=== PATIENT | female | born 1960 | race Caucasian/White ===

== ENCOUNTER → 2022-05-28 11:02 | Outpatient (BNVA) | payer SELFPAY | PROVIDERS: PCP Family Medicine; Visit Provider Family Medicine | DX: Z51.81 Encounter for therapeutic drug level monitoring (principal); R73.03 Prediabetes | CPT/HCPCS: 80053; 83036; 85025 ==

== ENCOUNTER 2023-06-26 12:42 | Outpatient (CLI) | payer MEDICARE, SELFPAY ==
--- NOTE | 2023-06-26 13:00 | MM_ITS ---
WS: [id number] RIGHT 3D TOMOSYNTHESIS DIGITAL MAMMOGRAPHY WITH CAD CLINICAL INFORMATION: Left Breast Cancer HISTORY: LEFT mastectomy COMPARISON: None available TECHNIQUE: 3 views of the right breast were obtained. FINDINGS: Scattered fibroglandular densities of the right breast. Biopsy clip RIGHT breast. No suspicious focal mass, asymmetry, calcifications, or architectural distortion. No evidence of elvira gnancy. IMPRESSION: MM/[place] [id number] BI-RADS: 2-Benign FOLLOW UP: 1 Year Follow-up Recommend return to annual diagnostic mammography.
--- NOTE | 2023-06-26 13:06 | US_ITS ---
WS: [id number] ULTRASOUND BREAST LEFT TECHNIQUE: Ultrasound left breast focused area of concern. CLINICAL INFORMATION: Left Breast Cancer COMPARISON: None. FINDINGS: Ultrasound LEFT breast at the area of patient concern near the mastectomy scar. Ultrasound performed from the 12:00 to 6 o'clock position. Normal underlying parenchymal tissue. No suspicious abnormaliti es. No suspicious cystic or solid lesions. IMPRESSION: BI-RADS 2 benign Recommend return to annual diagnostic mammography
== END 2023-06-26 12:43 | disposition home or self-care (01) ==
LOC: RAD 12:43
PROVIDERS: PCP Family Medicine; Visit Provider Family Medicine
DX: Z85.3 Personal history of malignant neoplasm of breast (principal); Z90.12 Acquired absence of left breast and nipple
CPT/HCPCS: 76642; 77061; G0279

== ENCOUNTER → 2023-07-15 08:38 | Outpatient (BNVA) | payer MEDICARE, SELFPAY | PROVIDERS: PCP Family Medicine; Visit Provider Family Medicine | DX: Z51.81 Encounter for therapeutic drug level monitoring (principal); R73.03 Prediabetes; E03.9 Hypothyroidism, unspecified; K85.90 Acute pancreatitis without necrosis or infection, unspecified; Z13.220 Encounter for screening for lipoid disorders | CPT/HCPCS: 80053; 80061; 83036; 84439; 84443; 85025 ==

== ENCOUNTER 2023-09-07 14:28 | Emergency (ER) | payer MEDICARE, SELFPAY ==
[2023-09-07] VITALS (9 sets, daily range): BP systolic 135–156; BP diastolic 74–101; PULSE 71–89; RESP 16–17; TEMP 36.5; O2SAT 93–99; BMI 46.3
--- NOTE | 2023-09-07 14:46 | ECG_ITS ---
[facility] Test Date: 2023-09-07 Pat Name: Leonarda East Department: Room: Gender: Female Clerical Aide: : 1960 Requested By: Masood Alvarez Order Number: [id number] Radha MD: Domingo Moralez M.D. Measurements Intervals [place] Rate: 75 P: 33 [place]: 182 QRS: -14 QRSD: 88 T: 26 QT: 398 QTc: 446 Interpretive Statements SINUS RHYTHM LOW QRS VOLTAGE IN PRECORDIAL LEADS [QRS DEFLECTION < 1.0 mV IN CHEST LEADS] MODERATE VOLTAGE CRITERIA FOR LVH, CONSIDER NORMAL VARIANT [MEETS CRITERIA IN ONE OF: R(aVL), S(V1), R(V5), R(V5/V6)+S(V1)] ANTEROSEPTAL MYOCARDIAL INFARCTION , OF INDETERMINATE AGE [40+ ms Q WAVE IN V1-V4] INTERPRETATION BASED ON A DEFAULT AGE OF 40 YEARS No previous ECG available for comparison Electronically Signed On 09-08-2023 14:17:26 SUPERVISOR/PORT DIRECTOR by Domingo Moralez M.D. [id number]
[2023-09-07 15:41] LABS: Basophils # 0.1 10^3/uL (0.0-0.1); Basophils % 0.7 %; Eosinophils # 0.5 10^3/uL (0.0-0.8); Eosinophils % 4.7 %; Hematocrit 41.6 % (36-47); Lymphocytes # 1.5 10^3/uL (0.8-4.8); Lymphocytes % 15.7 %; Mean Corpuscular HGB Conc 33.7 g/dL (30-55); Mean Corpuscular Hemoglobin 32.3 pg (27-33); Mean Corpuscular Volume 96.1 fl (85-98); Mean Platelet Volume 10.6 fL (7.4-10.4); Monocytes # 0.9 10^3/uL (0.2-0.9); Monocytes % 9.1 %; Neutrophils # 6.72 10^3/uL (1.8-7.7); Neutrophils % 69.3 %; Nucleated Red Blood Cells % 0 %; Platelet Count 257 10^3/cmm (157-399); Red Blood Count 4.33 10^6/uL (3.85-5.65); Red Cell Distribution Width 12.7 % (12.1-15.1)
--- NOTE | 2023-09-07 15:45 | XRR_ITS ---
PROCEDURE INFORMATION: Exam: XR Chest Exam date and time: 09/07/2023 3:19 PM Age: 63 years old Clinical indication: Chest pressure; Patient HX: Chest pain TECHNIQUE: Imaging protocol: Radiologic exam of the chest. Views: 1 view. COMPARISON: CR (CHEST, ) 09/07/2023 3:19 PM FINDINGS: Lungs: Unremarkable. No consolidation. Pleural spaces: Unremarkable. No pleural effusion. No pneumothorax. Heart/Mediastinum: Unremarkable. No cardiomegaly. Bones/joints: Mild degenerative changes of the shoulder joints. XR/XR chest 1V portable [id number] IMPRESSION: No acute findings.
[2023-09-07 16:00] LABS: Alanine Aminotransferase 22 U/L (0-33); Albumin Level 4.3 g/dL (3.5-5.2); Alkaline Phosphatase 68 U/L (35-105); Aspartate Amino Transferase 23 U/L (0-32); Blood Urea Nitrogen 16 mg/dL (8-23); Calcium 9.7 mg/dL (8.5-10.5); Carbon Dioxide 29 mmol/L (22-29); Chloride 102 mmol/L (98-107); Globulin 2.8 g/dL (1.3-4.6); Glomerular Filtration Rate 45.1 mL/min (90-130); Glucose 135 mg/dL (65-115); Osmolality Calculated 299 mOsm/kg (285-295); Sodium 143 mmol/L (136-145); Total Bilirubin 0.3 mg/dL (0.15-1.2); Total Protein 7.1 g/dL (6.6-8.7)
--- NOTE | 2023-09-07 17:23 | W.ED.ABDPA2 ---
HPI - Abdominal Pain General: Chief Complaint: Abdominal Pain Stated Complaint: chest pain Time Seen by Provider: 09/07/23 15:11 History of Present Illness: This patient is a 63-year-old white female who presents to the ER complaining of epigastric abdominal pain that radiates through to the back. She had some mild pain yesterday which resolved spontaneously. Today it was more severe around 1 PM. She states it feels like prior episodes of pancreatitis. Patient has had a cholecystectomy in the past. She has not had any associated nausea or vomiting. No constipation or diarrhea. No fever. She states her pain has resolved now. Review of Systems General: Reports: 10 or more systems reviewed and unremarkable except in HPI and below GI: Reports: abdominal pain PFSH ED PFSH: Medical History Pancreatitis, recurrent Hx of breast cancer Treated in 2002 Surgical History History of ventral hernia repair x 2 History of mastectomy left due to cancer Family History Brother Melanoma from this and metastases to lungs Sister Cancer Stage 4 colon cancer and lung cancer Brother Cancer of colon cancer Social History Substance/Drug Use: never Additional social history: Moved from [place], [place] Physical Exam Const: COMMON NORMALS: no acute distress, patient oriented x3 and no limitations GENERAL APPEARANCE: cooperative and comfortable HENMT: COMMON NORMALS: normocephalic, atraumatic, Normal nasal mucous membranes and turbinates present, moist oral mucous membranes and oropharynx normal HEAD & SCALP: normal to inspection, normocephalic and atraumatic FACE & SINUS: normal facial exam NOSE: Normal nasal mucous membranes and turbinates present Eye: COMMON NORMALS: Equal, round and reactive pupils present, EOMs intact bilaterally and conjunctivae normal GENERAL EYE: appearance normal, both eyes and all related structures CONJUNCTIVA: Yes conjunctivae normal PUPIL: Yes Equal, round and reactive pupils present Neck/C-Spine: COMMON NORMALS: supple and no JVD Chest: COMMONS NORMALS: normal inspection of the chest Resp: COMMON NORMALS: normal respiratory effort and clear to auscultation bilaterally AUSCULTATION: clear to auscultation bilaterally Cardio: COMMON NORMALS: no JVD, regular rate, regular rhythm, No gallops present (Cardio), No murmurs present (Cardio) and No rub (Cardio) RATE: regular rate RHYTHM: regular rhythm GI: COMMON NORMALS: Normal to inspection, nondistended, normoactive bowel sounds present, Soft to palpation and non-tender AUSCULTATION: Yes normoactive bowel sounds PALPATION: Yes Soft to palpation : COMMON NORMALS: Yes no CVA tenderness BLADDER/KIDNEY EXAM: Yes no CVA tenderness Back/Pelvis: COMMON NORMALS: no CVA tenderness and thoracic and lumbar spine normal to inspection Extremity: COMMON NORMALS: normal to inspection Neuro: COMMON NORMALS: patient oriented x3 and CN's II-XII intact bilaterally Psych: COMMON NORMALS: mental status grossly normal, Normal thought process present and cooperative THOUGHT PROCESS: Normal thought process present Skin: COMMON NORMALS: no rashes or lesions noted, turgor normal and no jaundice GENERAL SKIN EXAM: no rashes or lesions noted and turgor normal Course Vital Signs: Vital signs: Vital Signs Temperature 97.7 F 09/07/23 15:00 Pulse Rate 81 09/07/23 16:45 Respiratory Rate 17 09/07/23 16:45 Blood Pressure 135/87 09/07/23 16:45 Pulse Oximetry 96 09/07/23 16:45 Oxygen Delivery Me thod Room Air 09/07/23 16:45 MDM - Abdominal Pain Medical Decision Making EKG was normal. CBC and CMP normal. Lipase 3762. Patient remained pain-free throughout her ER stay. She was discharged in stable condition instructed to push clear liquids only for the next 24 to 48 hours. Recommended she follow-up with her primary care physician within 1 to 3 days for recheck of her lipase. I did prescribe [place] and Zofran if she does redevelop pain at home. Lab Data 09/07/23 15:28 09/07/23 15:28 Labs/Radiology: Radiology Impressions Chest X-Ray 09/07/23 15:45 IMPRESSION: No acute findings. Laboratory Results WBC 9.70 10^3/uL (3.29-11.43) 09/07/23 15:28 RBC 4.33 10^6/uL (3.85-5.65) 09/07/23 15:28 Hgb 14.00 g/dL (11.27-16.99) 09/07/23: Hct 41.6 % (36-47) 09/07/23: MCV 96.1 fl (85-98) 09/07/23 15: MCH 32.3 pg (27-33) 09/07/23: MCHC 33.7 g/dL (30-55) 09/07/23: RDW 12.7 % (12.1-15.1) 09/07/23: Plt Count 257 10^3/cmm (157-399) 09/07/23 MPV 10.6 fL (7.4-10.4) H 09/07/23 Neut % (Auto) 69.3 % 09/07/23: Lymph % (Auto) 15.7 % 09/07/23: [place] % (Auto) 9.1 % 09/07/23: Eos % (Auto) 4.7 % 09/07/23 Baso % (Auto) 0.7 % 09/07/23 Neut # (Auto) 6.72 10^3/uL (1.8-7.7) 09/07/23 Lymph # (Auto) 1.5 10^3/uL (0.8-4.8) 09/07/23 [place]assen # (Auto) 0.9 10^3/uL (0.2-0.9) 09/07/23 Eos # (Auto) 0.5 10^3/uL (0.0-0.8) 09/07/23 Baso # (Auto) 0.1 10^3/uL (0.0-0.1) 09/07/23 Nucleated RBC % (auto) 0 % 09/07/23 Nucleated RBCs # 0.0 /100WBC 09/07/23: Sodium 143 mmol/L (136-145) 09/07/23: Potassium 4.0 mmol/L (3.5-5.1) 09/07/23: Chloride 102 mmol/L (98-107) 02/11/24 15:28 Carbon Dioxide 29 mmol/L (22-29) 09/07/23 15:28 Anion Gap 16.0 (5-19) 09/07/23 15:28 BUN 16 mg/dL (8-23) 09/07/23 15:28 Creatinine 1.2 mg/dL (0.5-0.9) H 09/07/23 15:28 GFR Calculation 45.1 mL/min (90-130) L 09/07/23 15:28 Glucose 135 mg/dL (65-115) H 09/07/23 15:28 Calculated Osmolality 299 mOsm/kg (285-295) H 09/07/23 15:28 Calcium 9.7 mg/dL (8.5-10.5) 09/07/23 15:28 Total Bilirubin 0.3 mg/dL (0.15-1.2) 09/07/23 15:28 AST 23 U/L (0-32) 09/07/23 15:28 ALT 22 U/L (0-33) 09/07/23 15:28 Alkaline Phosphatase 68 U/L (35-105) 09/07/23 15:28 Total Protein 7.1 g/dL (6.6-8.7) 09/07/23 15:28 Albumin 4.3 g/dL (3.5-5.2) 09/07/23 15:28 Globulin 2.8 g/dL (1.3-4.6) 09/07/23 15:28 Lipase > 3762 U/L (13-60) H 09/07/23 15:28 All radiology interpretation(s) finalized by discharge Discharge Plan Discharge Patient Disposition: Home Clinical Impression: Pancreatitis Qualifiers: Chronicity: acute Pancreatitis type: idiopathic Acute pancreatitis complication: no infection or necrosis Qualified Code(s): K85.00 - Idiopathic acute pancreatitis without necrosis or infection Condition: Stable Prescriptions: New ondansetron 4 mg tablet,disintegrating 4 mg PO Q6H PRN (Reason: nausea and vomiting) Qty: 20 0RF hydrocodone-acetaminophen 5-325 mg tablet 1 tab PO Q4H PRN (Reason: pain) Qty: 20 0RF No Action cholecalciferol (vitamin D3) 25 mcg (1,000 unit) capsule 25 mcg PO DAILY ascorbic acid (vitamin C) 1,000 mg tablet 1 g PO DAILY omega-3 fatty acids 1,000 mg capsule 1,000 mg PO BID calcium 600 mg capsule PO magnesium oxide 500 mg tablet 500 mg PO DAILY tumeric 800 PO DAILY levothyroxine 75 mcg tablet 75 mcg PO DAILY Qty: 30 6RF (DME) CPAP mask and supplies See Rx Instructions .Route .MEDSUPPLY Qty: 1 3RF Rx Instructions: As directed to be used with CPAP at night metoprolol succinate 25 mg tablet extended release 24 hr 25 mg PO DAILY Qty: 90 3RF Discharge Orders: Discharge ED (Routine); Ordered 09/07/23 Ordered By: Nicho Coronado Referrals: Cole Richardson MD [Primary Care Provider] - 1-3 days Patient Instructions: Opioid Safety, Pain Management Coding Level of Care Code ED Laboratory Technical Specialist for Moses Crowder
== END 2023-09-07 17:29 | disposition home or self-care (01) ==
PROVIDERS: Internal Medicine; Emergency Provider Emergency Medicine; PCP Family Medicine
DX: K85.00 Idiopathic acute pancreatitis without necrosis or infection (principal); Z85.3 Personal history of malignant neoplasm of breast
CPT/HCPCS: 36415; 71045; 80053; 83690; 85025; 93005; 99285

== ENCOUNTER → 2023-09-11 12:38 | Outpatient (BNVA) | payer MEDICARE, SELFPAY | PROVIDERS: PCP Family Medicine; Visit Provider Clinical Nurse Specialist Adult Health | DX: K85.00 Idiopathic acute pancreatitis without necrosis or infection (principal) | CPT/HCPCS: 83690; 85025; 86140 ==

== ENCOUNTER → 2023-12-23 11:55 | Outpatient (BNVA) | payer MEDICARE, SELFPAY | PROVIDERS: PCP Family Medicine; Visit Provider Family Medicine | DX: Z51.81 Encounter for therapeutic drug level monitoring (principal); E78.5 Hyperlipidemia, unspecified; R73.03 Prediabetes; E03.9 Hypothyroidism, unspecified; R00.2 Palpitations; N39.0 Urinary tract infection, site not specified; R30.0 Dysuria; Z13.220 Encounter for screening for lipoid disorders; Z79.899 Other long term (current) drug therapy | CPT/HCPCS: 80053; 80061; 81000; 83036; 84439; 84443; 85025; 87086 ==

== ENCOUNTER 2024-01-28 08:12 | Outpatient (CLI) | payer MEDICARE, SELFPAY ==
--- NOTE | 2024-01-28 08:30 | USR_ITS ---
PROCEDURE INFORMATION: Exam: US Retroperitoneal; Complete; Kidneys and Bladder Exam date and time: 01/28/2024 8:21 AM Age: 63 years old Clinical indication: Other: Persistent hematuria, ; additional info: Persistent [place], [id number] TECHNIQUE: Imaging protocol: Real-time ultrasound of the retroperitoneum with image documentation. Complete exam focused on the kidneys and bladder. COMPARISON: No relevant prior studies available. FINDINGS: Right kidney: Normal. No stones. No hydronephrosis. Left kidney: Normal. No stones. No hydronephrosis. Urinary bladder: Unremarkable. US/US renal BI with PV bladder IMPRESSION: Unremarkable kidneys and bladder.
== END 2024-01-28 08:13 | disposition home or self-care (01) ==
LOC: RAD 08:12
PROVIDERS: PCP Family Medicine; Visit Provider Family Medicine
DX: R31.9 Hematuria, unspecified (principal)
CPT/HCPCS: 76770; 76857; 80053; 80061; 83036; 84439; 84443; 85025

== ENCOUNTER → 2024-04-05 12:34 | Outpatient (BNVA) | payer MEDICARE, SELFPAY | PROVIDERS: PCP Family Medicine; Referring Provider Family Medicine; Visit Provider Internal Medicine | DX: I21.29 ST elevation (STEMI) myocardial infarction involving other sites (principal); I49.8 Other specified cardiac arrhythmias; R07.9 Chest pain, unspecified | CPT/HCPCS: 93005; 99204 ==

== ENCOUNTER → 2024-04-27 11:50 | Outpatient (BNVA) | payer MEDICARE, SELFPAY | PROVIDERS: PCP Family Medicine; Visit Provider Family Medicine | DX: Z51.81 Encounter for therapeutic drug level monitoring (principal); E55.9 Vitamin D deficiency, unspecified; E03.9 Hypothyroidism, unspecified | CPT/HCPCS: 80053; 82306; 84439; 84443; 85025 ==

== ENCOUNTER → 2024-05-05 10:23 | Outpatient (BNVA) | payer MEDICARE, SELFPAY | PROVIDERS: PCP Family Medicine; Visit Provider Specialist | DX: M17.12 Unilateral primary osteoarthritis, left knee (principal) | CPT/HCPCS: 73560; 73565; 99204 ==

== ENCOUNTER 2024-05-06 09:12 | Outpatient (CLI) | payer MEDICARE, SELFPAY ==
--- NOTE | 2024-05-06 10:00 | USCV_ITS ---
Leonarda East Age: 64 Gender: F : 1960 Exam Date: 05/06/2024 09:43 Ordering Phys: Ronnie Cobb M.D ([email or web address]) Technologist: Exam Location: [facility] [place] Indication: cp murmur BP: 135 / 85 HR: 68 Rhythm: Sinus Technical Quality: Adequate MEASUREMENTS (Male / Female) Normal Values 2D ECHO LV Diastolic Diameter PLAX 3.8 cm 4.2 - 5.9 / 3.9 - 5.3 cm IVS Diastolic Thickness 1.2 cm 0.6 - 1.0 / 0.6 - 0.9 cm IVS Systolic Thickness 1.9 cm LVPW Diastolic Thickness 1.3 cm 0.6 - 1.0 / 0.6 - 0.9 cm LVPW Systolic Thickness 1.6 cm LVOT Diameter 2.5 cm LV Ejection Fraction 2D Teich 67.0 % LV Ejection Fraction MOD 4C 66.9 % LV Ejection Fraction MOD 2C 69.0 % LV Ejection Fraction 2C AL 69.6 % LA Diameter 3.7 cm RA Systolic Volume 4C AL 23.2 ml RA Systolic Volume 4C MOD 22.6 ml Aorta at Sinotubular Diameter 3.0 cm M-MODE LA Ao Ratio MM 1.4 AV Cusp Separation MM 2.5 cm DOPPLER AV Peak Velocity 157.0 cm/s LVOT Peak Velocity 84.0 cm/s AV Area Cont Eq vti 3.4 cm squared AV Area Cont Eq pk 2.5 cm squared MV Area PHT 3.0 cm squared Mitral E to A Ratio 0.9 TR Peak Velocity 170.0 cm/s TR Peak Gradient 11.6 mmHg TV Peak E Velocity 106.0 cm/s Right Atrial Pressure 3.0 mmHg Pulmonary Artery Systolic Pressu 14.6 mmHg PV Peak Velocity 101.0 cm/s FINDINGS Left Ventricle Normal left ventricular size, systolic function and wall thickness, with no regional wall motion abnormalities. Left ventricular ejection fraction is estimated at 60 %. Grade I/IV diastolic dysfunction (abnormal relaxation filling pattern), normal to mildly elevated filling pressures. Right Ventricle The right ventricle is normal in size and function. Right Atrium The right atrium is normal in size. Left Atrium Moderately increased left atrial size. Mitral Valve Moderately thickened mitral valve. No mitral valve stenosis. Mild mitral valve regurgitation. Aortic Valve Moderate aortic valve calcification. No aortic valve stenosis. Trace aortic valve regurgitation. Tricuspid Valve Structurally normal tricuspid valve without significant stenosis or regurgitation. Pulmonary artery systolic pressure is normal. Pulmonic Valve Structurally normal pulmonic valve without significant stenosis. There is no pulmonic regurgitation. Pericardium Normal pericardium without effusion. Aorta Normal ascending aorta dimension. IVC The inferior vena cava appears normal. CONCLUSIONS Normal left ventricular size, systolic function and wall thickness, with no regional wall motion abnormalities. Left ventricular ejection fraction is estimated at 60 %. Grade I/IV diastolic dysfunction (abnormal relaxation filling pattern), normal to mildly elevated filling pressures. Moderately thickened mitral valve. No mitral valve stenosis. Mild mitral valve regurgitation. Moderately increased left atrial size. Pulmonary artery systolic pressure is within normal limits. Right atrial pressure is around 5 mm of mercury. Kary Tam MD (Electronically Signed) Final Date: 06 May 2024 10:58 S
== END 2024-05-06 09:13 | disposition home or self-care (01) ==
LOC: RAD 09:12
PROVIDERS: PCP Family Medicine; Visit Provider Internal Medicine
DX: R01.1 Cardiac murmur, unspecified (principal); I34.0 Nonrheumatic mitral (valve) insufficiency; I70.0 Atherosclerosis of aorta
CPT/HCPCS: 93306

== ENCOUNTER 2024-06-14 08:18 | Outpatient (CLI) | payer MEDICARE, SELFPAY ==
--- NOTE | 2024-06-14 08:45 | MR_ITS ---
WS: [id number] MRI LEFT KNEE HISTORY: left knee pain COMPARISON: Radiograph 05/05/2024 Anterior cruciate ligament: Intact. Posterior cruciate ligament: Intact. Medial collateral ligament: There is slight displacement of the MCL from the joint line by partially extruded meniscus. Posterior lateral corner structures: Intact. Medial menisci: Abnormal signal in the root of the posterior horn. Intermediate signal with loss of t he normal contour of the meniscus. Markedly thickened meniscal root greatest along the superior phuc n suspicious for tear. Anterior horn partially extruded from the joint but otherwise normal. Lateral meniscus: Mild fraying along the free edge. Narrowing of the joint space. Extensor mechanism: Distal quadriceps tendon and patellar tendons are intact. Mild increased T2 signa l in the proximal patellar tendon. Fluid and soft tissue: Small suprapatellar joint effusion. No Kinney's cyst. Osseous and articular structures: Patellofemoral compartment: Slight lateral subluxation of the patella. Mild diffuse thinning of the c artilage. No marrow edema. No full-thickness cartilage defect. Medial compartment: Mild narrowing of the medial compartment. Small marginal osteophytes. Thinning of the cartilage. No marrow edema. There is an additional more focal full-thickness defect in the carti brandee along the tibial plateau at the level of the meniscal root tear. Lateral compartment: Mild thinning of the lateral compartment. Intermediate signal along the weightbe aring surface of the femoral condyle within the cartilage. No marrow edema. Small marginal osteophyte s. MR/MR knee LT wo con* [id number] IMPRESSION: 1. Abnormal posterior horn meniscal root consistent with a tear with associate d full-thickness cartilage defect at the tibial plateau. 2. Tricompartment joint space narrowing. 3. No ACL tear. 4. Mild proximal patellar tendinopathy. 5. Slight lateral subluxation of the patella with diffuse mild chondromalacia.
== END 2024-06-14 08:19 | disposition home or self-care (01) ==
LOC: RAD 08:19
PROVIDERS: PCP Family Medicine; Visit Provider Specialist
DX: M17.12 Unilateral primary osteoarthritis, left knee (principal); M23.222 Derangement of posterior horn of medial meniscus due to old tear or injury, left knee; M25.762 Osteophyte, left knee
CPT/HCPCS: 73721

== ENCOUNTER → 2024-06-16 07:49 | Outpatient (BNVA) | payer MEDICARE, SELFPAY | PROVIDERS: PCP Family Medicine; Visit Provider Specialist | DX: M17.12 Unilateral primary osteoarthritis, left knee; R03.0 Elevated blood-pressure reading, without diagnosis of hypertension | CPT/HCPCS: 99213 ==

== ENCOUNTER 2024-07-05 06:00 | Outpatient (RCR) | payer MEDICARE, SELFPAY | END 2024-07-27 23:59 | disposition home or self-care (01) | LOC: MPT 06:00 | PROVIDERS: Visit Provider Specialist | DX: M17.12 Unilateral primary osteoarthritis, left knee (principal); M25.562 Pain in left knee | CPT/HCPCS: 97110; 97162; G0283 ==

== ENCOUNTER → 2024-07-06 11:34 | Outpatient (BNVA) | payer MEDICARE, SELFPAY | PROVIDERS: PCP Family Medicine; Visit Provider Family Medicine | DX: G47.33 Obstructive sleep apnea (adult) (pediatric) (principal); Z99.89 Dependence on other enabling machines and devices; E03.9 Hypothyroidism, unspecified | CPT/HCPCS: 84439; 84443 ==

== ENCOUNTER 2024-07-28 06:00 | Outpatient (RCR) | payer MEDICARE, SELFPAY | END 2024-08-27 23:59 | disposition home or self-care (01) | LOC: MPT 06:00 | PROVIDERS: PCP Family Medicine; Visit Provider Specialist | DX: M17.12 Unilateral primary osteoarthritis, left knee (principal); M25.562 Pain in left knee | CPT/HCPCS: 97110; G0283 ==

== ENCOUNTER 2024-08-28 06:00 | Outpatient (RCR) | payer MEDICARE, SELFPAY | END 2024-09-24 23:59 | disposition home or self-care (01) | LOC: MPT 06:00 | PROVIDERS: PCP Family Medicine; Visit Provider Specialist | DX: M17.12 Unilateral primary osteoarthritis, left knee (principal) | CPT/HCPCS: 97110; G0283 ==

== ENCOUNTER 2024-09-25 06:00 | Outpatient (RCR) | payer MEDICARE, SELFPAY | END 2024-10-25 23:59 | disposition home or self-care (01) | LOC: MPT 06:00 | PROVIDERS: PCP Family Medicine; Visit Provider Specialist | DX: M17.12 Unilateral primary osteoarthritis, left knee (principal); M25.562 Pain in left knee | CPT/HCPCS: 97110; G0283 ==

== ENCOUNTER → 2024-10-01 08:41 | Outpatient (BNVA) | payer MEDICARE, SELFPAY | PROVIDERS: PCP Family Medicine; Visit Provider Family Medicine | DX: R30.0 Dysuria (principal); N39.0 Urinary tract infection, site not specified | CPT/HCPCS: 81000; 87086 ==

== ENCOUNTER → 2024-10-04 13:12 | Outpatient (BNVA) | payer MEDICARE, SELFPAY | PROVIDERS: PCP Family Medicine; Visit Provider Internal Medicine | DX: I10 Essential (primary) hypertension (principal); R73.03 Prediabetes; R01.1 Cardiac murmur, unspecified | CPT/HCPCS: 99213 ==

== ENCOUNTER 2024-11-04 07:40 | Outpatient (CLI) | payer MEDICARE, SELFPAY ==
--- NOTE | 2024-11-04 09:45 | US_ITS ---
WS: [id number] ULTRASOUND RENAL TECHNIQUE: Ultrasound examination of both kidneys. CLINICAL INFORMATION: Flank pain [id number] COMPARISON: None. FINDINGS: RIGHT: Right kidney is normal in size and appearance. Echogenicity: Normal. Cortical thickness: 1.1 cm; Normal. Hydronephrosis: None. Perinephric fluid: None. Right kidney measures: 10.3 cm x 4.4 cm x 4.1 cm. LEFT: Left kidney is normal in size and appearance. Echogenicity: Normal. Cortical thickness: 1.1 cm; Normal. Hydronephrosis: None. Perinephric fluid: None. Left kidney measures: 10.4 cm x 3.9 cm x 3.9 cm. Normal visualized aorta. US/US renal BI with PV bladder IMPRESSION: Technically difficult study due to bowel gas and body habitus 1. Prevoid bladder volume 398cc. Post void bladder volume 41 cc 2. No hydronephrosis in either kidney
== END 2024-11-04 07:41 | disposition home or self-care (01) ==
LOC: RAD 07:44
PROVIDERS: PCP Family Medicine; Visit Provider Family Medicine
DX: R10.9 Unspecified abdominal pain (principal)
CPT/HCPCS: 76770; 76857